=== PATIENT | female | born 1960 | race Caucasian/White ===

== ENCOUNTER 2017-04-19 08:06 | Emergency (ER) | payer SELFPAY | END 2017-04-19 10:08 | disposition home or self-care (01) | LOC: ERS 08:06 | DX: B02.9 Zoster without complications (principal); B35.1 Tinea unguium; M19.90 Unspecified osteoarthritis, unspecified site; E03.9 Hypothyroidism, unspecified; I10 Essential (primary) hypertension; F41.9 Anxiety disorder, unspecified; F32.9 Major depressive disorder, single episode, unspecified; F43.10 Post-traumatic stress disorder, unspecified; Z79.899 Other long term (current) drug therapy | CPT/HCPCS: 99282 ==